=== PATIENT | female | born 1940 ===

== ENCOUNTER → 2024-09-30 10:42 | Outpatient (REF) | payer MEDICARE, SELFPAY | LOC: EMG 10:42 | PROVIDERS: ATTENDING PHYSICIAN Physician Assistant Surgical; FAMILY PHYSICIAN Nurse Practitioner Adult Health | DX: M79.606 Pain in leg, unspecified (principal); R20.0 Anesthesia of skin | CPT/HCPCS: 95886; 95911 ==